=== PATIENT | female | born 1980 | race Caucasian/White ===

== ENCOUNTER 2016-11-02 15:39 | Inpatient (IN) | payer OTHER ==
[2016-11-02] MEDS ORDERED: AMPICILLIN SODIUM 2 GM in NS 100 ML IV ONE (16:21)
[2016-11-02] MEDS ORDERED: OLIVE OIL 118 ML BTL MISC PRN (16:21)
[2016-11-02] MEDS ORDERED: EPSOM SALT 454 GM TP PRN (16:21)
[2016-11-02] MEDS ORDERED: LR 1,000 ML IV PRN (16:21)
[2016-11-02] MEDS ORDERED: TERBUTALINE SULFATE 1 MG/ML VIAL IV PRN (16:21)
[2016-11-02] MEDS ORDERED: OXYTOCIN/RINGERS LACTATE 1,000 ML IV PRN (16:21)
[2016-11-02 18:07] LABS: % IMMATURE GRANULYOCYTES 2.3 % (0.0-1.1); ABSOLUTE IMMATURE GRANULOCYTES 0.27 10^3/uL (0.00-0.10); ADD DIFF? NO; ADD MORPH? NO; ADD SCAN? NO; ATYPICAL LYMPHOCYTE FLAG 0 (0-99); FRAGMENT RBC FLAG 10 (0-99); HEMATOCRIT 34.9 % (38.0-47.0); HEMOGLOBIN 12.1 g/dL (12.6-16.3); LEFT SHIFT FLG 30 (0-99); LIPEMIA HEMOLYSIS FLAG 90 (0-99); MEAN CELL HEMOGLOBIN 32.9 pg (27.9-34.1); MEAN CELL HEMOGLOBIN CONCENTR. 34.7 g/dL (32.4-36.7); MEAN CELL VOLUME 94.8 fL (81.5-99.8); MEAN PLATELET VOLUME 11.7 fL (8.7-11.7); PLATELET CLUMPS FLAG 0 (0-99); PLATELET COUNT 146 10^3/uL (150-400); RED BLOOD CELL COUNT 3.68 10^6/uL (4.18-5.33); RED CELL DISTRIBUTION WIDTH 13.5 % (11.5-15.2)
[2016-11-02] MEDS ORDERED: LIDOCAINE 1% 300 MG/30 ML SDV ONE (18:10)
[2016-11-02] MEDS ORDERED: OLIVE OIL 118 ML BTL ONE (18:10)
[2016-11-02] MEDS ORDERED: AMMONIA AROMATIC 1 EACH AMP IH ONE (18:10)
[2016-11-02] MEDS ORDERED: MISOPROSTOL 200 MCG TAB ONE (18:11)
--- NOTE | 2016-11-02 18:57 | GHP ---
[f rep st] HISTORY AND PHYSICAL DATE OF ADMISSION: 11/02/2016 HISTORY OF PRESENT ILLNESS: 36-year-old at 39 weeks 5 days by LMP consistent with 6-week ultrasound who presents to Labor and Delivery due to gross rupture of membranes. Patient reports having a large gush of fluid at 1500. She reports the fluid to be clear and odorless. She denies any regular contractions or vaginal bleeding. She reports positive movement. PAST MEDICAL HISTORY: +achromatopsia. PAST SURGICAL HISTORY: She denies any surgical history. SOCIAL HISTORY: She is . Denies any tobacco use (she was a smoker, quit more than 10 years ago). Denies any alcohol or drug use. Denies any history of STDs. GYNECOLOGICAL HISTORY: She denies any history of abnormal Pap smears or procedures on her cervix. Denies any history of STDs. OBSTETRICAL HISTORY: 1) SAB x1 in 2016 2) current : she entered care with [facility] at 7 weeks. She has received routine care. 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 PNLs: O+, ABS neg, HIV NR, RPR NR, Hep B NR, pap NIL, HPV neg, gc/ct neg MEDICATIONS: vitamin with DHA. ALLERGIES: NKDA REVIEW OF SYSTEMS: 10-point review of systems was reviewed and all negative except pertinent information which was disclosed in the HPI. GENERAL: She denies any generalized fatigue. Reports feeling overall well. HEENT: Denies any headache, visual changes, or sore throat. CARDIOVASCULAR: Denies any chest pain or palpitations. PULMONARY: Denies any cough or shortness of breath. GI: Denies any nausea, vomiting, diarrhea, or constipation. GENITOURINARY: Denies any dysuria, vaginal bleeding, vaginal discharge. MUSCULOSKELETAL: Denies any edema in the extremities. SKIN: Denies any rashes or lesions. NEUROLOGIC: Denies any numbness, tingling, loss of consciousness. PSYCH: Denies any depression or anxiety. PHYSICAL EXAMINATION: GENERAL APPEARANCE: Alert and oriented x3. HEENT: Normocephalic and atraumatic. NECK: Supple. HEART: Regular rate and rhythm. No murmurs noted. LUNGS: Clear to auscultate bilaterally. No wheezes or rhonchi noted. ABDOMEN: Gravid, soft, nontender. : Pelvic exam was performed in the office, SVE /-3 EXTREMITIES: Negative for edema. Negative Homans sign. NEUROLOGIC: Grossly normal. ASSESSMENT: heart tones are in the 140s. Category 1 heart rate tracing. EFW approximately 3300 g. TOCO: Irregular contractions noted. Patient reports contractions q.4 to 6 minutes. Contractions are moderate to palpation. ASSESSMENT: 1. 36-year-old 2, para 0010 at 39 and 5 by last menstrual period consistent with 6-week ultrasound. 2. SROM at 1500, clear fluid. 3. GBS+ 4. Category 1 heart rate tracing. PLAN: 1. Admit to Labor and Delivery. 2. IV access/IV antibiotics secondary to positive GBS. 3. Expectant management. At this time, will consider augmentation with Cytotec p.o. if indicated. 4. Reassess p.r.n. 5. Anticipate . /[id number]/MODL MTDD
[2016-11-02] MEDS: MISOPROSTOL 100 MCG TAB PO SCH (19:51)
[2016-11-02] MEDS ORDERED: OXYTOCIN 20 UNIT in LR 1,000 ML IV PRN (21:00)
[2016-11-02] MEDS: AMPICILLIN SODIUM 1 GM in NS 100 ML IV SCH (21:11)
[2016-11-02] MEDS ORDERED: BUPIVACAINE 0.25% 30 ML SDV ONE (22:23)
[2016-11-02] MEDS ORDERED: fentaNYL 100 MCG/2 ML INJ ONE (22:23)
[2016-11-02] MEDS ORDERED: PHENYLEPHRINE HCL 100 MCG/ML SYR ONE (22:23)
[2016-11-02] MEDS ORDERED: fentaNYL 2MCG/ML/BUP 0.1% RTU 100 ML BAG EP ONE (22:23)
[2016-11-03] MEDS: AMPICILLIN SODIUM 1 GM in NS 100 ML IV SCH ×2 (00:23→04:53)
--- NOTE | 2016-11-03 00:30 | PREANESOB ---
Obstetric Pre-Anesthesia Info - General Info Proposed Procedure: Labor and delivery. : 2 Para: 0 WBD: 40 - Info Status: Full Term Monitors: External FHR Baseline (bpm): 130 FHR Pattern: Reassuring - Labor Status Cervical Dilation per last OB SVE: 3 Indications for Labor Analgesia: Pain Control Labor Epidural: Proposed Anesthesia ROS: Negative. Allergies/Adverse Reactions: Allergy/AdvReac Type Severity Reaction Status Date / Time No Known Allergies Allergy Unverified 11/02/16 15:57 Home Medications: Medication Instructions Recorded Calcium Carb/Magnesium Ox,Carb 1 each PO 11/02/16 [Dion-Mag Tablet Chewable] Iron/Vitamin B Comp W-C [Blood 1 tab PO DAILY 11/02/16 Builder Vit w/ Iron] Vit27&Calcium/Iron/FA 1 each PO DAILY 11/02/16 [ Rx 1 Tablet (RX)] Visit Medications: Generic Name Dose Route Start Last Admin Trade Name Freq PRN Reason Stop Dose Admin Ampicillin Sodium 1 gm/ Sodium 100 mls @ 200 mls/hr 11/02/16 20:22 11/03/16 00:23 Chloride IV 12/02/16 20:21 100 mls Q4H ROSALIND Administration Protocol Lactated Ringer's 1,000 mls @ 0 mls/hr 11/02/16 16:21 11/02/16 17:07 Lr IV 05/01/17 16:20 1,000 mls PRN PRN Administration SEE PROTOCOL CONDITIONS Protocol Per Protocol Oxytocin 20 unit/ Lactated 1,002 mls @ 150 mls/hr 11/02/16 21:00 Ringer's IV PRN PRN Post- bleeding Ibuprofen 600 mg 11/02/16 16:21 Motrin PO 05/01/17 16:20 Q6HRS PRN post , inflammation Magnesium Sulfate 454 gm 11/02/16 16:21 Epsom Salt TP 05/01/17 16:20 Q1H PRN perineal discomfort Misoprostol 50 mcg 11/02/16 22:00 11/02/16 19:51 Cytotec PO 05/01/17 21:59 50 mcg Q4 ROSALIND Administration [place] Oil 118 ml 11/02/16 16:21 Sweet Oil MISC 05/01/17 16:20 ONCE PRN perineal massage Terbutaline Sulfate 0.25 mg 11/02/16 16:21 Brethine IV 05/01/17 16:20 ONCE PRN Tachysystole Discontinued Medications Generic Name Dose Route Start Last Admin Trade Name Freq PRN Reason Stop Dose Admin Ammonia (Aromatic Spirit) Confirm 11/02/16 18:10 Ammonia Aromatic Administered 11/02/16 18:11 Dose 1 each IH .STK-MED ONE Bupivacaine HCl Confirm 11/02/16 22:23 Sensorcaine 0.25% Sdv Administered 11/02/16 22:24 Dose 30 ml .ROUTE .STK-MED ONE Fentanyl Confirm 11/02/16 22:23 Sublimaze Administered 11/02/16 22:24 Dose 100 mcg .ROUTE .STK-MED ONE Fentanyl/Bupivacaine HCl Confirm 11/02/16 22:23 Fentanyl/Bupivacaine/Ns 2 Mcg/Ml 0.1% (Premix Administered 11/02/16 22:24 Dose 100 ml EP .STK-MED ONE Ampicillin Sodium 2 gm/ Sodium 110 mls @ 220 mls/hr 11/02/16 16:21 11/02/16 17:07 Chloride IV 11/02/16 16:50 110 mls ONCE ONE Administration Protocol Oxytocin/Lactated Ringer's 1,000 mls @ 150 mls/hr 11/02/16 16:21 Pitocin 20 Units/Lr (Premix) IV PRN PRN Post- bleeding Lidocaine HCl Confirm 11/02/16 18:10 Lidocaine Hcl 1% Administered 11/02/16 18:11 Dose 300 mg .ROUTE .STK-MED ONE Misoprostol Confirm 11/02/16 18:11 Cytotec Administered 11/02/16 18:12 Dose 1,000 mcg .ROUTE .STK-MED ONE [place] Oil Confirm 11/02/16 18:10 Sweet Oil Administered 11/02/16 18:11 Dose 118 ml .ROUTE .STK-MED ONE Phenylephrine HCl Confirm 11/02/16 22:23 Neosynephrine Administered 11/02/16 22:24 Dose 1,000 mcg .ROUTE .STK-MED ONE - Anesthesia History Response to Local Anesthetics: Normal Anesthesia & Operative History: No Prior Problems Family Anesthesia History: Negative - Social History Substance Use/Abuse: Denies - Focused Exam Blood Pressure: 101/75 Heart Rate: 70 Respiratory Rate: 18 Height/Weight (Nursing): Height 172.72 cm Weight 77.564 kg Physical Exam: Within normal limits. ASA Status: II Labs: 11/02/16 17:00 Patient ABO/Rh O POSITIVE 11/02/16 17:00 - Plan Anesthetic Plan: MARY JANE Consent Signed and on Chart: Yes Patient/Guardian Understands and Agrees to Plan: Yes Urgent/Emergent Case: Uriah saab completed preop but documented later for safe timely pt care
--- NOTE | 2016-11-03 00:31 | POSTANESTH ---
Post Anesthetic Evaluation Cardiovascular Status: Tx Hyper/Hypo-tension (Stable after phenylephrine.) Respiratory Status: Normal, Stable, Similar to Pre-op Cond. Level of Consciousness/Mental Status: Can Participate in Eval, Alert and Oriented Pain Control: Adequate, Prn Tx Ordered Nausea/Vomiting Control: Adequate, Prn Tx Ordered Complications Possibly Related to Anesthesia: None Noted
[2016-11-03] MEDS ORDERED: ONDANSETRON 4 MG/2 ML VIAL IVP PRN (00:32)
[2016-11-03] MEDS ORDERED: PHENYLEPHRINE HCL 100 MCG/ML SYR IVP PRN (00:32)
[2016-11-03] MEDS ORDERED: LR 500 ML IV SCH (01:00)
[2016-11-03] MEDS ORDERED: fentaNYL 2MCG/ML/BUP 0.1% RTU 100 ML EP SCH (01:00)
[2016-11-03] MEDS: MISOPROSTOL 100 MCG TAB PO SCH ×3 (01:01→19:39)
--- NOTE | 2016-11-03 05:36 | OBPROG ---
Labor Progress Note Assessment/Plan: Assessment: [id number] with IUP@ 39-5 PROM GBS+ cat 1 FHR tracing active labor Plan: labor down reassess 1-2hr/PRN anticipate 11/03/16 05:35 Subjective/Intrapartum Course: 11/03/16 07:00 Late entry pt doing well, breathing through contractions. reports feeling pressure with each contraction 11/03/16 07:01 Objective: 11/02/16 17:00 Patient ABO/Rh O POSITIVE 11/02/16 17:00 Temp Pulse Resp BP Pulse Ox 70 18 101/75 11/03/16 00:30 11/03/16 00:30 11/03/16 00:30 VSS Exam: FHR Cat 1 FHR tracing at this time, does have periods of min variability - SVE Dilation (cm): 9 Effacement (%): 90 Station: 0 Membranes: SROM Amniotic Fluid Color: Clear Dilation Complete Date: 11/03/16 Dilation Complete Time: 04:57 - Contraction Pattern Assessment Current Contraction Pattern: Regular - AP Antepartum Course: 11/03/16 07:03 PNC: uncomplicated, +GBS - Physical Exam General Appearance: WD/WN Neck: non-tender Respiratory: chest non-tender Skin: normal color Neuro/Psych: no motor/sensory deficits, alert, oriented x 3 Oxytocin Orders Assessment - Pre-Induction/Augmentation Assessment Presentation: Vertex Gestational Age: 39 week(s) and 5 day(s) ICD10 Worksheet Patient Problems: Problems Problem Status Onset PROM (premature rupture of membranes) Acute Positive GBS test Acute - ICD10 Problem Qualifiers (1) PROM (premature rupture of membranes) (2) Positive GBS test
[2016-11-03] MEDS ORDERED: HYDROCORTISONE 0.5% CREAM TP PRN (07:32)
[2016-11-03] MEDS ORDERED: HYDROCODONE/APAP 5/325 TAB PO PRN (07:32)
[2016-11-03] MEDS ORDERED: SIMETHICONE 80 MG TAB CHEW PO PRN (07:32)
[2016-11-03] MEDS ORDERED: ACETAMINOPHEN 325 MG TAB PO PRN (07:32)
--- NOTE | 2016-11-03 07:32 | OBDEL ---
Info Type: Vaginal Presentation at Delivery: Vertex L&D Analgesia/Anesthesia Type: Epidural GBS+: Yes Antibiotic Used for + GBS: Ampicillin Intrapartum Medications: Generic Name Dose Route Start Last Admin Trade Name Freq PRN Reason Stop Dose Admin Ampicillin Sodium 1 gm/ Sodium 100 mls @ 200 mls/hr 11/02/16 20:22 11/03/16 04:53 Chloride IV 12/02/16 20:21 100 mls Q4H ROSALIND Administration Protocol Lactated Ringer's 1,000 mls @ 0 mls/hr 11/02/16 16:21 11/02/16 17:07 Lr IV 05/01/17 16:20 1,000 mls PRN PRN Administration SEE PROTOCOL CONDITIONS Protocol Per Protocol Misoprostol 50 mcg 11/02/16 22:00 11/03/16 01:01 Cytotec PO 05/01/17 21:59 50 mcg Q4 ROSALIND Administration Discontinued Medications Generic Name Dose Route Start Last Admin Trade Name Freq PRN Reason Stop Dose Admin Ampicillin Sodium 2 gm/ Sodium 110 mls @ 220 mls/hr 11/02/16 16:21 11/02/16 17:07 Chloride IV 11/02/16 16:50 110 mls ONCE ONE Administration Protocol - Hospital Course Intrapartum: 11/03/16 07:00 Late entry pt doing well, breathing through contractions. reports feeling pressure with each contraction 11/03/16 07:01 Indications for Delivery: SROM Vaginal Delivery - Delivery Provider Delivery Physician/CNM: Jumana Angel - Labor and Delivery Onset of Contractions Date: 11/03/16 Onset of Contractions Time: 02:15 Onset of Contractions Type: Augmented Rupture of Membranes Date: 11/02/16 Rupture of Membranes Time: 15:00 Rupture of Membranes Type: Spontaneous Amniotic Fluid Color: Clear Dilation Complete Date: 11/03/16 Dilation Complete Time: 04:57 Placenta Delivery Date: 11/03/16 Placenta Delivery Time: 05:59 Total Hours of Labor: 3 Episiotomy: Midline Laceration: 2nd Degree Repair: 3-0 Vaginal Sponge Count Correct: Yes Vaginal Needle Count Correct: Yes Vaginal Sweep Performed: Yes EBL: 400 Delivery Events: Nuchal Cord - Medications Labor Augmentation/Induction Methods Used: Misoprostol Data Pérez Delivery Date: 11/03/16 Delivery Time: 05:54 CHRIS: 11/04/16 Gestational Age: 39 week(s) and 6 day(s) Sex of Infant: Male Score (1 Min): 8 Score (5 Min): 9 ICD10 Worksheet Patient Problems: Problems Problem Status Onset PROM (premature rupture of membranes) Acute Positive GBS test Acute - ICD10 Problem Qualifiers (1) PROM (premature rupture of membranes) (2) Positive GBS test
[2016-11-03] MEDS: IBUPROFEN 600 MG TAB PO PRN ×3 (07:33→19:39)
[2016-11-03] MEDS: DOCUSATE SODIUM 100 MG CAP PO PRN (13:39)
[2016-11-04] MEDS: IBUPROFEN 600 MG TAB PO PRN ×4 (03:30→21:37)
[2016-11-04] MEDS: DOCUSATE SODIUM 100 MG CAP PO PRN (09:39)
--- NOTE | 2016-11-04 11:19 | OBPP ---
Progress Note Assessment/Plan: Assessment: 1) s/p PPD # 1 - pt is stable 2) Anemia - pt is asymptomatic Plan: Continue routine pp care Pt may want to go home later today Discharge home if baby is discharged Instructions reviewed with pt Colnt PNV Pelvic rest RTC in 4 and 6 weeks for pp check 11/04/16 11:21 Subjective/ Course: Pt seen and examined. Doing well with no complaints. Minimal cramping. Mod lochia. Kai regular diet, voiding and passing flatus. No BM yet. BF well so far. Wants to go home today if baby is discharged. 11/04/16 11:21 Objective: 11/02/16 17:00 Patient ABO/Rh O POSITIVE 11/02/16 17:00 Temp Pulse Resp BP Pulse Ox 36.6 C 69 16 81/53 L 96 11/04/16 06:00 11/04/16 06:00 11/04/16 06:00 11/04/16 06:00 11/04/16 06:00 Uterine Position/Fundal Height: Umbilicus -2 Uterine Tone: Firm Physical Exam - Physical Exam Respiratory: lungs clear, normal breath sounds Cardiac/Chest: regular rate, rhythm Abdomen: normal bowel sounds, non-tender, soft, flatus (+) Extremities: non-tender, normal inspection Skin: normal color, warm/dry Neuro/Psych: alert, normal mood/affect, oriented x 3
--- NOTE | 2016-11-04 11:23 | OBGCSDC ---
General Delivery Information - General Info : 2 Para: 0 Abortions: 0 Type: Vaginal L&D Analgesia/Anesthesia Type: Epidural Admission Date: 11/02/16 Labs: Patient ABO/Rh O POSITIVE 11/02/16 17:00 Hct 34.9 % (38.0-47.0) L 11/02/16 17:00 - Hospital Course Antepartum: 11/03/16 07:03 PNC: uncomplicated, +GBS Intrapartum: 11/03/16 07:00 Late entry pt doing well, breathing through contractions. reports feeling pressure with each contraction 11/03/16 07:01 : Pt seen and examined. Doing well with no complaints. Minimal cramping. Mod lochia. Kai regular diet, voiding and passing flatus. No BM yet. BF well so far. Wants to go home today if baby is discharged. 11/04/16 11:21 Vaginal - Delivery Provider Delivery Physician/CNM: Jumana Angel - Diagnosis Labor: Augmented Rupture of Membranes Type: Spontaneous Amniotic Fluid Color: Clear Episiotomy: Midline Laceration: 2nd Degree Repair: 3-0 Delivery Events: Nuchal Cord - Delivery EBL: 400 Data Pérez Delivery Date: 11/03/16 Delivery Time: 05:54 CHRIS: 11/04/16 Gestational Age: 40 week(s) and 0 day(s) Sex of Infant: Male [place] Weight (gm): 3104 g Score (1 Min): 8 Score (5 Min): 9 Discharge Information - Discharge Information Condition: Good Instruction/Follow Up: Four Weeks, Six Weeks
[2016-11-04 20:57] VITALS: TEMP 98.2
[2016-11-05] MEDS: IBUPROFEN 600 MG TAB PO PRN ×2 (03:59→10:29)
[2016-11-05 09:50] VITALS: BP 108/76; PULSE 86; RESP 18; O2SAT 95
[2016-11-05] MEDS: DOCUSATE SODIUM 100 MG CAP PO PRN (10:29)
--- NOTE | 2016-11-05 12:38 | OBPP ---
Progress Note Assessment/Plan: Assessment: 36 yo WF PPD#2 doing well Plan: DC home today 11/05/16 12:35 Subjective/ Course: Pt seen and examined. Doing well with no complaints. Minimal cramping. Mod lochia. Kai regular diet, voiding and passing flatus. No BM yet. BF well so far. Wants to go home today if baby is discharged. 11/04/16 11:21 11/05/16 12:36 Patient is doing well. Denies significant lochia or pain. She is ambulating, voiding and passing flatus without pain or difficulty. She desires DC home today. Objective: 11/02/16 17:00 Patient ABO/Rh O POSITIVE 11/02/16 17:00 Temp Pulse Resp BP Pulse Ox 36.8 C 86 18 108/76 95 11/05/16 08:00 11/05/16 08:00 11/05/16 08:00 11/05/16 08:00 11/05/16 08:00 Exam: VSS Gen: AAO x 3 HENT: atraumatic, normocephalic Heart: RRR, no m/r/g Lungs: CTAB Abd: soft, non-tender, fundus is firm and below umbilicus Extremities: no excessive swelling in BLE Uterine Position/Fundal Height: Umbilicus -2 Uterine Tone: Firm
== END 2016-11-05 13:45 | disposition home or self-care (01) | DRG 775 ==
LOC: FLD 15:39 → FOB 11-03 09:20
PROVIDERS: ADMIT Advanced Practice Midwife; ATTEND Advanced Practice Midwife
DX: O99.824 Streptococcus B carrier state complicating childbirth (principal); Z37.0 Single live birth; O70.1 Second degree perineal laceration during delivery; Z3A.39 39 weeks gestation of pregnancy; O69.82X0 Labor and delivery complicated by other cord entanglement, without compression, not applicable or unspecified
CPT/HCPCS: J0290; J2370; J3010

== ENCOUNTER → 2016-11-29 | Outpatient (CLI) | payer OTHER | LOC: FLAB 11:50 | PROVIDERS: ATTEND Advanced Practice Midwife | DX: Z39.1 Encounter for care and examination of lactating mother (principal) | CPT/HCPCS: G0463 ==

== ENCOUNTER → 2017-03-20 | Outpatient (CLI) | payer OTHER | LOC: FLACT 13:03 | PROVIDERS: ATTEND Advanced Practice Midwife | DX: Z39.1 Encounter for care and examination of lactating mother (principal) | CPT/HCPCS: G0463 ==